=== PATIENT | male | born 1950 | race Caucasian/White ===

== ENCOUNTER 2016-08-22 08:00 | Outpatient (CLI) | payer MEDICARE | END 2016-08-22 08:01 | disposition home or self-care (01) | DX: I48.91 Unspecified atrial fibrillation (principal) ==

== ENCOUNTER 2016-09-28 11:39 | Outpatient (CLI) | payer MEDICARE | END 2016-09-28 11:40 | disposition home or self-care (01) | DX: I48.91 Unspecified atrial fibrillation (principal) ==